=== PATIENT | female | born 1980 | race Caucasian/White ===

== ENCOUNTER 2018-05-05 16:18 | Emergency (ER) | payer BC, MEDICAID, OTHER ==
[2018-05-05] MEDS ORDERED: KETOROLAC 60 MG/2 ML VIAL IM STA (16:48)
[2018-05-05] MEDS ORDERED: diazePAM 5 MG TABLET PO STA (16:48)
--- NOTE | 2018-05-05 16:52 | ED Physician Documentation ---
History of Present Illness - Stated complaint Stated Complaint: NECK PAIN - Chief complaint Chief Complaint: General - History obtained from History obtained from: Patient, Family - History of Present Illness Timing: How many weeks ago (several) Pain level max: 8 Pain level now: 4 - Additonal information Additional information: Patient is a 37-year-old female who presents to the emergency department with bilateral neck and upper back pain for the past several weeks. Worse with movement and better with rest. Take a Vicodin today which helped. Also took a Flexeril which helped. Has had similar symptoms in the past and has seen chiropractors in the past for this. She denies any numbness or tingling. Denies any chest pain or shortness of breath Review of Systems Ten Systems: 10 systems reviewed and negative Constitutional: denies: Fever, Chills Ears: denies: Ear pain Nose: denies: Rhinorrhea / runny nose, Congestion Cardiac: denies: Chest pain / pressure, Palpitations Respiratory: denies: Cough GI: denies: Abdominal Pain, Nausea, Vomiting, Diarrhea Skin: denies: Rash Neurologic: denies: Generalized weakness, Headache PD PAST MEDICAL HISTORY - Past Medical History Past Medical History: No Psych: Depression - Past Surgical History Past Surgical History: No - Present Medications Home Medications: Ambulatory Orders Medication Instructions Recorded Confirmed Clonazepam 0.25 mg PO DAILY PM PRN 05/05/18 05/05/18 Meloxicam [Mobic] 15 mg PO DAILY PRN #20 tablet 05/05/18 buPROPion [Wellbutrin Xl] 150 mg PO BID 05/05/18 diazePAM [Valium] 5 - 10 mg PO TID PRN #15 tablet 05/05/18 - Allergies Allergies/Adverse Reactions: Allergies Allergy/AdvReac Type Severity Reaction Status Date / Time No Known Drug Allergies Allergy Verified 05/05/18 16:23 - Living Situation Living Situation: reports: With family Living Arrangement: reports: At home - Social History Does the pt smoke?: No Does the pt drink ETOH?: No Does the pt have substance abuse?: No - Family History Family history: reports: Non contributory PD ED PE NORMAL - Vitals Vital signs reviewed: Yes - General General: Alert and oriented X 3, No acute distress - HEENT HEENT: PERRL, Ears normal, Moist mucous membranes, Pharynx benign - Neck Neck: Supple, no meningeal sign, No JVD, No bruit, Other (Bilateral paraspinal spasm over the cervical area. Able to range her neck up and down without pain. Has pain when turning side to side.) - Cardiac Cardiac: RRR, Strong equal pulses - Respiratory Respiratory: No respiratory distress, Clear bilaterally - Abdomen Abdomen: Soft, Non tender, Non distended - Back Back: No spinal TTP - Derm Derm: Warm and dry - Neuro Neuro: Alert and oriented X 3, costume mistress 2-12 intact, No motor deficit, No sensory deficit, Normal speech - Psych Psych: Normal mood, Normal affect Results - Vitals Vitals: Vital Signs - 24 hr 05/05/18 05/05/18 16:19 17:28 Temperature 36.6 C 36.7 C Heart Rate 89 84 Respiratory 16 16 Rate Blood Pressure 111/54 L 107/59 L O2 Saturation 100 100 Oxygen O2 Source Room air PD MEDICAL DECISION MAKING - ED course Complexity details: re-evaluated patient, considered differential, d/w patient, d/w family ED course: Patient is a 37-year-old female who appears to have paraspinal muscle spasm in the neck. Possibly from a new mattress they brought. Will prescribe anti- inflammatories and muscle relaxants for home. I will have her follow-up closely with her doctor. No meningeal signs. No midline tenderness to palpation or percussion. No evidence of cauda equina, epidural abscess. Normal neurological exam. No evidence of vertebral artery dissection or carotid artery dissection. Patient counseled regarding signs and symptoms for which I believe and urgent re-evaluation would be necessary. Patient with good understanding of and agreement to plan and is comfortable going home at this time This document was made in part using voice recognition software. While efforts are made to proofread this document, sound alike and grammatical errors may occur. - Sepsis Event Vital Signs: Vital Signs - 24 hr 05/05/18 05/05/18 16:19 17:28 Temperature 36.6 C 36.7 C Heart Rate 89 84 Respiratory 16 16 Rate Blood Pressure 111/54 L 107/59 L O2 Saturation 100 100 Oxygen O2 Source Room air Departure - Departure Disposition: 01 Home, Self Care Clinical Impression: Neck muscle spasm Condition: Good Instructions: ED Spasm Neck No Injury Follow-Up: your,doctor in 1 week [Other] Prescriptions: diazePAM [Valium] 5 - 10 mg PO TID PRN #15 tablet PRN Reason: Spasms Meloxicam [Mobic] 15 mg PO DAILY PRN #20 tablet PRN Reason: pain Comments: Do not drive or operate heavy machinery while taking the Valium. This should improve over the next few days. Is important to follow-up with your doctor for further evaluation and care. Forms: Activity restrictions Discharge Date/Time: 05/05/18 17:28
[2018-05-05 17:30] VITALS: BP 107/59
== END 2018-05-05 17:28 | disposition home or self-care (01) ==
LOC: ED 16:18
DX: M62.838 Other muscle spasm (principal)
CPT/HCPCS: 96372; 99283; 99284

== ENCOUNTER 2021-02-07 12:25 | Emergency (ER) | payer OTHER ==
--- OUTSIDE RECORDS SUMMARY | 2021-02-07 13:47 | EXTERNAL MEDICAL SUMMARY RPT | Continuity of Care Document ---
:1980 Demographics Phone Unavailable Preferred Language Unknown Marital Status Unknown Mandaen Affiliation Unknown Race Unknown Ethnic Group Unknown Author Organization [facility] Address [address] [id number] Phone Social History date description facility [phone]
--- NOTE | 2021-02-07 14:04 | CT Report ---
PROCEDURE: HEAD WO INDICATIONS: L sided weakness TECHNIQUE: Noncontrast 4.5 mm thick angled axial sections acquired from the foramen magnum to the vertex. For r adiation dose reduction, the following was used: automated exposure control, adjustment of mA and/or kV according to patient size. COMPARISON: 10/15/2014 FINDINGS: Image quality: There is streak artifact seen through the skull base. CSF spaces: Basal cisterns are patent. No extra-axial fluid collections. Ventricles are normal in size and shape. Brain: No midline shift. No intracranial masses or hemorrhage. Smiley-white matter interface is norm al. Skull and face: Calvarium and visualized facial bones are intact, without suspicious lesions. Sinuses: Visualized sinuses and mastoids are clear. IMPRESSION: No definite, acute intracranial abnormality can be seen. No intracranial hemorrhage is seen. If there is strong clinical concern for a stroke, please consider a dedicated brain MRI for further e valuation (assuming that there is no contraindication to MRI). Reviewed by: Micheal Lopez MD on 02/07/2021 1:03 PM LUCIO Approved by: Micheal Lopez MD on 02/07/2021 1:03 PM LUCIO Station ID: [id number]
[2021-02-07 14:16] LABS: BASOPHILS # (AUTO) 0.1 10^3/uL (0.0-0.1); BASOPHILS % (AUTO) 0.8 %; EOSINOPHILS # (AUTO) 0.1 10^3/uL (0.0-0.7); EOSINOPHILS % (AUTO) 1.7 %; HCT - HEMATOCRIT 39.1 % (37.0-47.0); HGB - HEMOGLOBIN 12.7 g/dL (12.0-16.0); LYMPHOCYTES # (AUTO) 1.2 10^3/uL (1.5-3.5); LYMPHOCYTES % (AUTO) 20.8 %; MEAN CORPUSCULAR HEMOGLOBIN 29.7 pg (27.0-31.0); MEAN CORPUSCULAR HGB CONC 32.5 g/dL (32.0-36.0); MEAN CORPUSCULAR VOLUME 91.4 fL (81.0-99.0); MEAN PLATELET VOLUME 9.1 fL (7.9-10.8); MONOCYTES # (AUTO) 0.5 10^3/uL (0.0-1.0); MONOCYTES % (AUTO) 8.6 %; NEUTROPHILS % (AUTO) 67.8 %; PLT - PLATELET COUNT 209 10^3/uL (130-450); RED BLOOD COUNT 4.28 10^6/uL (4.20-5.40); RED CELL DISTRIBUTION WIDTH 12.5 % (12.0-15.0); WHITE BLOOD COUNT 5.9 x10^3/uL (4.8-10.8)
[2021-02-07 14:28] LABS: ALBUMIN 4.4 g/dL (3.2-5.5); ALBUMIN/GLOBULIN RATIO 1.6 (1.0-2.2); BILIRUBIN,TOTAL 0.3 mg/dL (0.2-1.0); CALCIUM 9.6 mg/dL (8.5-10.3); CREATININE 0.5 mg/dL (0.4-1.0); POTASSIUM 3.8 mmol/L (3.5-5.0); TOTAL PROTEIN 7.2 g/dL (6.7-8.2)
--- NOTE | 2021-02-07 15:12 | ED Physician Documentation ---
History of Present Illness - Stated complaint Stated Complaint: NUMB/WEAKNESS L SIDE - Chief complaint Chief Complaint: Neuro - History obtained from History obtained from: Patient - Additonal information Additional information: Pt comes to the ED with chief complaint of pain, numbness, weakness, and swelling on L side since getting 1st covid shot ([employer]) 3 weeks ago. Pt states it started with a swollen "lump" on her L upper arm where the shot was. She states this progressed to another "lump" a few cm inferiorly, which has persisted until now. No redness or induration. She also states she noticed swelling of her arm/hand that comes and goes. Pt states that she then began to have numbness in the same arm a few days later (though she states she still has mostly normal sensation), and now c/o weakness for the last week. Pt a few days ago noticed that her L leg now feels weak. Pt states she works for the [employer], and does lots of heavy lifting and carrying of things, and has been able to carry on with this work. She denies dropping things She states she has a tight soreness extending from her L shoulder, around her shoulder blade. Pt denies any neck injury. No headache or visual changes. No vertigo. She states it is hard for her to lift her L arm beyond 90 degrees at the shoulder, because it feels like she just "can't". Pt does admit to some tightness in the shoulder which may be prohibitive, too, however. No h/o Guillain-[place]', MG, or MS in pt or family. She had some chills and aches after the vaccination, but no other systemic sx. No h/o DVT. Pt is not a smoker. No other complaints at this time. Pt is R-side dominant. Review of Systems Ten Systems: 10 systems reviewed and negative Constitutional: reports: Reviewed and negative Eyes: reports: Reviewed and negative Ears: reports: Reviewed and negative Nose: reports: Reviewed and negative Throat: reports: Reviewed and negative Cardiac: reports: Reviewed and negative Respiratory: reports: Reviewed and negative GI: reports: Reviewed and negative : reports: Reviewed and negative Skin: reports: Reviewed and negative Musculoskeletal: reports: Reviewed and negative Neurologic: reports: Focal weakness, Numbness Psychiatric: reports: Reviewed and negative Endocrine: reports: Reviewed and negative Immunocompromised: reports: Reviewed and negative PD PAST MEDICAL HISTORY - Past Medical History Past Medical History: Yes Endocrine/Autoimmune: Type 2 diabetes Psych: Depression - Past Surgical History 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 - Present Medications Home Medications: Ambulatory Orders Medication Instructions Recorded Confirmed Clonazepam 0.25 mg PO DAILY PM PRN 05/05/18 02/07/21 Meloxicam [Mobic] 15 mg PO DAILY PRN #20 tablet 05/05/18 02/07/21 Metformin HCl [Glucophage Xr] 1,000 mg PO DAILY 02/07/21 02/07/21 - Allergies Allergies/Adverse Reactions: Allergies Allergy/AdvReac Type Severity Reaction Status Date / Time No Known Drug Allergies Allergy Verified 02/07/21 12:28 - Social History Does the pt smoke?: No Smoking Status: Never smoker Does the pt drink ETOH?: No Does the pt have substance abuse?: No - Immunizations Immunizations are current?: Yes - POLST Patient has POLST: No PD ED PE NORMAL - Vitals Vital signs reviewed: Yes - General General: Alert and oriented X 3, No acute distress, Well developed/nourished - HEENT HEENT: Atraumatic, PERRL, EOMI, Moist mucous membranes - Neck Neck: Supple, no meningeal sign, No bony TTP - Cardiac Cardiac: RRR, No murmur, Strong equal pulses - Respiratory Respiratory: No respiratory distress, Clear bilaterally - Abdomen Abdomen: Soft, Non tender, Non distended - Back Back: No spinal TTP - Derm Derm: Normal color, Warm and dry, No rash - Extremities Extremities: No deformity, No edema, No calf tenderness / cord - Neuro Neuro: Alert and oriented X 3, 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 No ataxia. No gait abnormality.) - Psych Psych: Normal mood, Normal affect Results - Vitals Vitals: Oxygen O2 Source Room air - Labs Labs: Laboratory Tests 02/07/21 02/07/21 14:09 14:09 WBC 5.9 RBC 4.28 Hgb 12.7 Hct 39.1 MCV 91.4 MCH 29.7 MCHC 32.5 RDW 12.5 Plt Count 209 MPV 9.1 Neut # (Auto) 4.0 Lymph # (Auto) 1.2 L [place] # (Auto) 0.5 Eos # (Auto) 0.1 Baso # (Auto) 0.1 Absolute Nucleated RBC 0.00 Nucleated RBC % 0.0 Sodium 138 Potassium 3.8 Chloride 105 Carbon Dioxide 26 Anion Gap 7.0 BUN 15 Creatinine 0.5 Estimated GFR (MDRD) 136 Glucose 84 Calcium 9.6 Total Bilirubin 0.3 AST 16 ALT 33 Alkaline Phosphatase 60 Total Protein 7.2 Albumin 4.4 Globulin 2.8 Albumin/Globulin Ratio 1.6 Lipase 29 PD MEDICAL DECISION MAKING - ED course Complexity details: reviewed results, re-evaluated patient, considered differential, d/w patient, d/w family ED course: The pt was well-appearing. She did exhibit less strength on the L upper and lower extremities than on the R, though this seemed to be able to be overcome with prompting, so it was unclear to what degree this may be voluntary or a result of discomfort/tightness, not primary weakness. I also d/w pt that the focal nature of the sx, especially now involving one other extremity, makes a relation to the vaccine itself less likely. The pt was worked up with basic labs and CT of the head, both of which were negative. I d/w pt that I am not sure what is causing her sx, but that it is very important that she follows up with primary care to discuss further testing. No emergent condition has been identified today. We have discussed the usual indications for return. Departure - Departure Disposition: 01 Home, Self Care Clinical Impression: Numbness and tingling in left arm, Left-sided weakness, Muscle spasm Condition: Stable Instructions: ED Weakness UKO, ED Paraesthesias Comments: Your labs and head CT look good.. Is not clear why you have developed the sense of numbness and weakness in your left arm and leg. These are not generally expected symptoms which would be related to the Covid shot. Additionally, any physiologic reaction to the vaccine should involve your entire body just one side. Please follow-up with your primary care physician if you continue to have the symptoms. You may need to follow-up with a neurologist if you do not have any improvement over the next couple of weeks. Discharge Date/Time: 02/07/21 15:28
[2021-02-07 15:24] VITALS: BP 104/72
== END 2021-02-07 15:28 | disposition home or self-care (01) ==
LOC: ED 12:25
DX: R20.0 Anesthesia of skin (principal); R29.898 Other symptoms and signs involving the musculoskeletal system; M62.838 Other muscle spasm; E11.9 Type 2 diabetes mellitus without complications; Z79.84 Long term (current) use of oral hypoglycemic drugs
CPT/HCPCS: 36415; 80053; 83690; 85025; 99284